=== PATIENT | female | born 1995 | race Caucasian/White ===

== ENCOUNTER → 2020-02-18 | Outpatient (CLI) | payer BC | LOC: ZCOL.LAB 15:35 | DX: J02.9 Acute pharyngitis, unspecified (principal); R50.9 Fever, unspecified; Z20.828 Contact with and (suspected) exposure to other viral communicable diseases ==

== ENCOUNTER → 2020-04-11 | Outpatient (CLI) | payer SELFPAY | LOC: EDSTATUS 15:05 → ZCOL.LAB 17:06 | DX: B34.9 Viral infection, unspecified (principal); Z20.828 Contact with and (suspected) exposure to other viral communicable diseases ==